=== PATIENT | female | born 1950 | race Caucasian/White ===

== ENCOUNTER → 2017-02-02 | Outpatient (CLI) | payer OTHER ==
[~2017-02-02] MED LIST: ATEN50TA8 PO; HYZUNK; OMEP20CA59 PO; SIMV40TA2 PO
--- NOTE | 2017-02-03 13:10 | MAMMOGRAPHY REPORT ---
BILATERAL DIGITAL SCREENING MAMMOGRAM WITH CAD: 02/02/2017 CLINICAL HISTORY: Routine screening. Patient has no complaints. TECHNIQUE: Current study was also evaluated with a Computer Aided Detection (CAD) system. Bilatera l CC and MLO and XCCL views were obtained. COMPARISON: Comparison is made to exams dated: 02/02/2016 mammogram, 01/29/2015 mammogram, 01/27/2014 mammogram, 01/25/2013 mammogram, 01/25/2012 mammogram, and 01/18/2011 mammogram - [facility]. BREAST COMPOSITION: There are scattered areas of fibroglandular density in both breasts. FINDINGS: There is a nodular 6 mm asymmetry seen within the left superior breast middle depth on th e MLO view only, which may represent normal overlapping fibroglandular tissue although spot compress ion tomosynthesis views and possible breast ultrasound are recommended for further evaluation. The remainder of both breasts are stable compared to prior exams, without suspicious masses, calcifi cations, or areas of architectural distortion noted. Scattered bilateral benign-appearing calcifica tions are not significantly changed. IMPRESSION: ACR BI-RADS CATEGORY 0: INCOMPLETE EVALUATION: NEED ADDITIONAL IMAGING EVALUATION Left breast asymmetry, for which additional imaging evaluation is recommended. The patient will be called to schedule an appointment. Approximately 10% of breast cancers are not detected with mammography. A negative mammographic repor t should not delay biopsy if a clinically suggestive mass is present. Shannon Manley M.D. /:02/02/2017 16:35:52 Outbound Sales Advisor: Aurora Larson, [facility] letter sent: Addl Imaging 0 BI-RADS Code: ACR BI-RADS Category 0: Incomplete Evaluation: Need Additional Imaging Evaluation
== END | disposition home or self-care (01) ==
LOC: C.MAMM 15:30
PROVIDERS: ATTEND Family Medicine
DX: Z12.31 Encounter for screening mammogram for malignant neoplasm of breast (principal); N64.89 Other specified disorders of breast

== ENCOUNTER → 2017-02-08 | Outpatient (CLI) | payer OTHER ==
--- NOTE | 2017-02-08 12:59 | MAMMOGRAPHY REPORT ---
UNILATERAL LEFT DIGITAL DIAGNOSTIC MAMMOGRAM TOMOSYNTHESIS: 02/08/2017 CLINICAL HISTORY: 66-year-old woman called back from screening mammography for a 6 mm nodular asymme try in the superior middle one third of the left breast on the MLO view. TECHNIQUE: Spot compression left CC and MLO 2-D digital and tomosynthesis images were obtained. COMPARISON: Comparison is made to exams dated: 02/02/2017 mammogram, 02/02/2016 mammogram, 01/29/2015 mammogram, 01/27/2014 mammogram, 01/25/2013 mammogram, and 01/25/2012 mammogram - [facility]. BREAST COMPOSITION: There are scattered areas of fibroglandular density in the left breast. FINDINGS: There is complete effacement of the 6 mm nodular asymmetry in the superior middle one thir d of the left breast with the supplemental spot compression MLO view including tomosynthesis images. No focal area of architectural distortion or suspicious microcalcifications are seen. No correspo nding abnormality is identified on the spot compression left CC view. The asymmetry most likely rep resented overlapping fibroglandular tissue and recommend return to annual screening mammography sche elzbieta. IMPRESSION: ACR BI-RADS CATEGORY 2: BENIGN Complete effacement of the nodular asymmetry in the superior middle one third of the left breast on the MLO view. There is no mammographic evidence of malignancy. Return to annual mammogram screening schedule is recommended. The patient has been verbally notified of the results. Approximately 10% of breast cancers are not detected with mammography. A negative mammographic repor t should not delay biopsy if a clinically suggestive mass is present. Steffi Pablo M.D. ay/:02/08/2017 12:34:50 Urogynecology Physician: Lucy ROBERTSON(R)(M), [facility] letter sent: Normal 1/2 BI-RADS Code: ACR BI-RADS Category 2: Benign
== END | disposition home or self-care (01) ==
LOC: C.MAMM 08:00
PROVIDERS: ATTEND Family Medicine
DX: R92.8 Other abnormal and inconclusive findings on diagnostic imaging of breast (principal)

== ENCOUNTER → 2018-02-05 | Outpatient (CLI) | payer OTHER, MEDICARE ==
--- NOTE | 2018-02-06 13:18 | MAMMOGRAPHY REPORT ---
BILATERAL DIGITAL SCREENING MAMMOGRAM TOMOSYNTHESIS WITH CAD: 02/05/2018 CLINICAL HISTORY: Routine screening. Patient has no complaints. TECHNIQUE: Breast tomosynthesis in addition to standard 2D mammography was performed. Current study was also evaluated with a Computer Aided Detection (CAD) system. COMPARISON: Comparison is made to exams dated: 02/08/2017 mammogram, 02/02/2017 mammogram, 02/02/2016 m ammogram, 01/29/2015 mammogram, 01/27/2014 mammogram, and 01/25/2013 mammogram - [facility] enter. BREAST COMPOSITION: There are scattered areas of fibroglandular density in both breasts. FINDINGS: There is stable nodularity in the anterior right breast. Scattered benign round calcificat ions bilaterally. No suspicious spiculated or irregular mass, architectural distortion or cluster of microcalcifications is seen. IMPRESSION: ACR BI-RADS CATEGORY 1: NEGATIVE There is no mammographic evidence of malignancy. A 1 year screening mammogram is recommended. The pa tient will receive written notification of the results. Approximately 10% of breast cancers are not detected with mammography. A negative mammographic report should not delay biopsy if a clinically suggestive mass is present. Steffi Pablo M.D. ay/:02/05/2018 16:30:11 Pie Maker: Jaquelin MEJIA)(Nichelle)(BD), [facility] letter sent: Normal 1/2 BI-RADS Code: ACR BI-RADS Category 1: Negative
== END | disposition home or self-care (01) ==
LOC: C.MAMM 15:06
PROVIDERS: ATTEND Family Medicine
DX: Z12.31 Encounter for screening mammogram for malignant neoplasm of breast (principal)